=== PATIENT | female | born 1955 | race Caucasian/White ===

== ENCOUNTER 2021-05-20 07:04 | Day surgery (SDC) | payer BC, MEDICARE, SELFPAY ==
[2021-05-20] MEDS ORDERED: Depo-Medrol 40 MG/ML IM ONE (07:05)
[2021-05-20] MEDS ORDERED: Xylocaine 1% Vial 30 ML PF IJ ONE (07:05)
[2021-05-20] MEDS ORDERED: Sodium Chloride 0.9(Preservative Free) 10 ML IJ ONE (07:05)
[2021-05-20] MEDS ORDERED: DIPRIVAN 200 MG/20 ML IV ONE (08:42)
--- NOTE | 2021-05-20 10:14 | XRAY ---
Indication: Lumbar DEL. Intraoperative fluoroscopy provided for 20 seconds. Single lateral digital spot image submitted for interpretation demonstrates posterior needle tip projecting posterior to L3-L4 interspace. Small amount of contrast injected for needle tip placement. Correlate with intraoperative findings/report.
--- NOTE | 2021-05-20 10:22 | XRAY ---
20 seconds fluoroscopy time in surgery for lumbar DEL.
[2021-05-20] MEDS ORDERED: Lactated Ringers 1,000 ML IV ONE (15:17)
== END 2021-05-20 09:25 | disposition home or self-care (01) ==
LOC: SDC-PAIN 07:04
PROVIDERS: ATTEND Psychiatry & Neurology Pain Medicine
DX: M54.16 Radiculopathy, lumbar region (principal); Z79.899 Other long term (current) drug therapy
CPT/HCPCS: 62323; 72100; 77003; J1030; J2001; J2704; Q9966

== ENCOUNTER 2024-07-25 08:56 | Day surgery (SDC) | payer MEDICARE, OTHER ==
[2024-07-25] MEDS ORDERED: Sodium Chloride 0.9(Preservative Free) 10 ML IJ ONE (08:57)
[2024-07-25] MEDS ORDERED: Depo-Medrol 40 MG/ML IM ONE (08:57)
[2024-07-25] MEDS ORDERED: XYLOCAINE 1% HCL 20 ML MDV IJ ONE (08:57)
[2024-07-25] MEDS ORDERED: DIPRIVAN 200 MG/20 ML IV ONE (10:21)
--- NOTE | 2024-07-25 12:16 | XRAY ---
9 seconds of fluoroscopy was used in surgery for a lumbar DEL.
--- NOTE | 2024-07-25 12:18 | XRAY ---
Indication: Lumbar DEL. Intraoperative fluoroscopy provided for 9 seconds. 3 digital spot images submitted for interpretation demonstrates posterior needle tip projecting posterior to lumbosacral junction interspace. Small amount of contrast injected for needle tip placement. Correlate with intraoperative findings/report.
== END 2024-07-25 10:56 | disposition home or self-care (01) ==
LOC: SDC-PAIN 08:56
PROVIDERS: ATTEND Psychiatry & Neurology Pain Medicine
DX: M54.16 Radiculopathy, lumbar region (principal)
CPT/HCPCS: 62323; 72100; 77003; J2704; Q9966